=== PATIENT | female | born 1980 | race African-American/Black ===

== ENCOUNTER 2018-11-02 09:46 | Emergency (ER) | payer OTHER ==
[~2018-11-02] VITALS: Ht 154.9 cm; Wt 63.5 kg
[~2018-11-02 09:46] MED LIST: AMARYL2 MG PO; B-12250 MCG PO; GLUCOPHAGE1000 MG PO; LISINOPRIL5 MG PO; XOPENEX1.25 MG/3; ZOFRAN ODT4 MG PO
[2018-11-02] MEDS ORDERED: NORVASC2.5 MG PO (10:07)
[2018-11-02] MEDS ORDERED: AVAPRO75 MG PO (10:08)
[2018-11-02] MEDS ORDERED: NORVASC5 MG PO (10:10)
[2018-11-02] MEDS ORDERED: AVAPRO 150 MG150 MG PO (10:10)
[2018-11-02 10:19] LABS: URINE BILIRUBIN NEGATIVE (Negative); URINE CLARITY SLIGHTLY CLOUDY; URINE COLOR AMBER; URINE GLUCOSE-RANDOM* 3+ (Negative); URINE KETONES NEGATIVE (Negative); URINE PROTEIN (DIPSTICK) TRACE (Negative); URINE SPECIFIC GRAVITY 1.025 (1.005-1.035)
[2018-11-02 10:20] LABS: URINE BLOOD 3+ (Negative); URINE LEUKOCYTES NEGATIVE (Negative); URINE NITRITE NEGATIVE (Negative); URINE UROBILINOGEN 0.2 E.U./dl (0.2-1.0)
[2018-11-02 10:24] LABS: ABSOLUTE NEUTROPHILS 3.5 thou/uL (1.4-8.2); BASOPHILS 0.9 % (0.0-2.0); EOSINOPHILS 4.5 % (0.0-3.0); HEMATOCRIT 40.9 % (37.0-47.0); HEMOGLOBIN 14.1 gm/dL (12.0-15.0); LYMPHOCYTES 30.9 % (24.0-44.0); MCH 30.7 pg (26.0-34.0); MCHC 34.4 g/dL (28.0-37.0); MCV 89.2 fL (80.0-100.0); MONOCYTES 5.7 % (1.0-8.0); PLATELET COUNT 248 thou/uL (150-400); RBC 4.58 mil/uL (4.20-5.00); RDW 12.5 % (10.5-14.5); WBC 6.1 thou/uL (4.0-11.0)
[2018-11-02 10:32] LABS: CALCIUM 9.2 mg/dL (8.5-10.1); POTASSIUM 4.1 mmol/L (3.5-5.1)
[2018-11-02 10:37] LABS: ALBUMIN 4.1 g/dL (3.4-5.0); TOTAL BILIRUBIN 0.6 mg/dL (<0.1-1.0); TOTAL PROTEIN 8.4 g/dL (6.4-8.2)
[2018-11-02 10:45] LABS: BACTERIA 1-9 Few /HPF (None Seen); CASTS None Seen /LPF (None Seen); CRYSTALS None Seen /LPF (None Seen); SQUAMOUS 0-3 Few /LPF (0-3); URINE RBC >20 Many /HPF (0-2); URINE WBC 0-5 Rare /HPF (0-5)
[2018-11-02] MEDS ORDERED: NAPROSYN500 MG PO (12:49)
[2018-11-02] MEDS ORDERED: TRAMADOL 50 MG50 MG PO (12:49)
[2018-11-02 13:51] VITALS: BP 129/87
--- NOTE | 2018-11-02 22:03 | EKG ---
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
== END 2018-11-02 13:50 | disposition home or self-care (01) ==
LOC: ER 09:46
PROVIDERS: Emergency Medicine
DX: R10.31 Right lower quadrant pain (principal); R19.7 Diarrhea, unspecified; N94.6 Dysmenorrhea, unspecified; E11.9 Type 2 diabetes mellitus without complications; Z88.0 Allergy status to penicillin

== ENCOUNTER 2021-02-07 00:08 | Emergency (ER) | payer OTHER ==
[~2021-02-07] VITALS: Ht 154.9 cm; Wt 62.1 kg
[~2021-02-07 00:08] MED LIST changes: +AVAPRO 150 MG150 MG PO; +AVAPRO75 MG PO; +NAPROSYN500 MG PO; +NORVASC2.5 MG PO; +NORVASC5 MG PO; +TRAMADOL 50 MG50 MG PO
[2021-02-07] MEDS ORDERED: LANTUS SUBQ (00:21)
[2021-02-07] MEDS ORDERED: AMARYL2 MG PO (00:21)
[2021-02-07] MEDS ORDERED: VICTOZA0.6 MG/0.1 SUBQ (00:22)
[2021-02-07] MEDS ORDERED: SYMBICORT160 MCG/4. INH (00:22)
[2021-02-07] MEDS ORDERED: FENOFIBRATE160 MG PO (00:22)
[2021-02-07 01:39] LABS: ABSOLUTE NEUTROPHILS 3.4 thou/uL (1.4-8.2); BASOPHILS 1.1 % (0.0-2.0); EOSINOPHILS 5.3 % (0.0-3.0); HEMATOCRIT 35.9 % (37.0-47.0); HEMOGLOBIN 11.9 gm/dL (12.0-15.0); LYMPHOCYTES 39.3 % (24.0-44.0); MCH 29.2 pg (26.0-34.0); MCHC 33.1 g/dL (28.0-37.0); MCV 88.3 fL (80.0-100.0); PLATELET COUNT 235 thou/uL (150-400); POLYS 48.3 % (36.0-66.0); RBC 4.07 mil/uL (4.20-5.00); RDW 15.3 % (10.5-14.5); WBC 7.1 thou/uL (4.0-11.0)
[2021-02-07 01:41] LABS: CALCIUM 9.1 mg/dL (8.5-10.1); CREATININE 0.8 mg/dL (0.6-1.0); POTASSIUM 3.7 mmol/L (3.5-5.1)
[2021-02-07] MEDS ORDERED: NAPROSYN500 MG PO (02:44)
[2021-02-07] MEDS ORDERED: ZANAFLEX4 MG PO (02:44)
[2021-02-07 03:05] VITALS: BP 117/78
--- NOTE | 2021-02-07 17:13 | EKG ---
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
== END 2021-02-07 03:08 | disposition home or self-care (01) ==
LOC: ER 00:08
PROVIDERS: Emergency Medicine
DX: R09.1 Pleurisy (principal); M62.838 Other muscle spasm; I10 Essential (primary) hypertension; E11.9 Type 2 diabetes mellitus without complications; J45.909 Unspecified asthma, uncomplicated; Z79.4 Long term (current) use of insulin; Z79.899 Other long term (current) drug therapy; Z88.0 Allergy status to penicillin